=== PATIENT | female | born 1955 | race Caucasian/White ===

== ENCOUNTER 2019-03-27 15:26 | Emergency (ER) | payer BC, OTHER ==
[~2019-03-27] VITALS: Ht 167.6 cm; Wt 87.1 kg
[2019-03-27] MEDS ORDERED: LEVO-T50 MCG PO (15:35)
[2019-03-27] MEDS ORDERED: AUGMENTIN 875-1 EACH PO (16:49)
[2019-03-27 16:55] VITALS: BP 149/74
== END 2019-03-27 16:55 | disposition home or self-care (01) ==
LOC: ER 15:26
DX: M79.632 Pain in left forearm (principal); R59.9 Enlarged lymph nodes, unspecified; M06.9 Rheumatoid arthritis, unspecified; Z98.51 Tubal ligation status; Z91.041 Radiographic dye allergy status; Z88.2 Allergy status to sulfonamides

== ENCOUNTER 2020-08-31 18:21 | Emergency (ER) | payer BC, OTHER ==
[~2020-08-31] VITALS: Ht 167.6 cm; Wt 87.1 kg
[~2020-08-31 18:21] MED LIST: AUGMENTIN 875-1 EACH PO; LEVO-T50 MCG PO
[2020-08-31 23:18] VITALS: BP 154/82
--- NOTE | 2020-09-04 07:19 | EKG ---
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
== END 2020-08-31 23:19 | disposition home or self-care (01) ==
LOC: ER 18:21
DX: I10 Essential (primary) hypertension (principal); M06.9 Rheumatoid arthritis, unspecified; Z88.2 Allergy status to sulfonamides; Z91.048 Other nonmedicinal substance allergy status; Z79.899 Other long term (current) drug therapy; Z98.51 Tubal ligation status